=== PATIENT | male | born 1975 | race Caucasian/White ===

== ENCOUNTER 2021-07-13 08:40 | Outpatient (REF) | payer OTHER, SELFPAY ==
[2021-07-13 10:46] LABS: Binax Internal Control QC Valid; Binax Lot number: 9864; Binax Now Covid-19 Ag Positive (Negative)
== END 2021-07-13 08:41 | disposition home or self-care (01) ==
LOC: HO.LAB 08:40
PROVIDERS: Visit Provider Internal Medicine
DX: Z20.822 Contact with and (suspected) exposure to COVID-19 (principal)
CPT/HCPCS: 36415; C9803